=== PATIENT | female | born 1985 | race Caucasian/White ===

== ENCOUNTER 2019-07-25 16:45 | Emergency (ER) | payer OTHER ==
[~2019-07-25] VITALS: Ht 165.1 cm; Wt 81.7 kg
[~2019-07-25 16:45] MED LIST: ACETAMINOPHEN325 M1; ADDERALL 20 MG20 M1 PO; ADDERALL 30 MG30 MG PO; CIPROFLOXACIN500 M1 PO; DIFLUCAN150 MG PO; DOXYCYCLINE 10100 M1 PO; GABAPENTIN 100100 MG PO; HYDROXYCUT; IBUPROFEN 800800 M1 PO; KEFLEX500 MG PO; NORCO 5-325 TA1 EACH PO; OXYCONTIN10 M1 PO; PERCOCET 5-3251 EACH PO; PRENATAL; PYRIDIUM200 MG PO; ROBAXIN 750 MG750 M1 PO; TRAMADOL 50 MG50 MG PO; ULTRAM 50MG TAB50 MG PO; VALIUM5 MG PO; XANAX XR1 MG PO
[2019-07-25 17:32] LABS: URINE BILIRUBIN NEGATIVE (Negative); URINE BLOOD 1+ (Negative); URINE CLARITY CLEAR; URINE COLOR YELLOW; URINE GLUCOSE-RANDOM* NEGATIVE (Negative); URINE KETONES NEGATIVE (Negative); URINE PROTEIN (DIPSTICK) NEGATIVE (Negative); URINE UROBILINOGEN 0.2 E.U./dl (0.2-1.0)
[2019-07-25 17:34] LABS: URINE LEUKOCYTES-REFLEX 1+ (Negative); URINE NITRITE-REFLEX POSITIVE (Negative)
[2019-07-25 17:53] LABS: BACTERIA-REFLEX >30 Many /HPF (None Seen); CASTS None Seen /LPF (None Seen); CRYSTALS None Seen /LPF (None Seen); SQUAMOUS 0-3 Few /LPF (0-3)
[2019-07-25 17:54] LABS: URINE RBC 0-2 Rare /HPF (0-2); URINE WBC-REFLEX 0-5 Rare /HPF (0-5)
[2019-07-25] MEDS ORDERED: TRAMADOL 50 MG50 MG PO (18:02)
[2019-07-25] MEDS ORDERED: CLEOCIN HCL150 MG PO (18:02)
[2019-07-25 18:03] VITALS: BP 120/65
== END 2019-07-25 18:09 | disposition home or self-care (01) ==
LOC: ER 16:45
PROVIDERS: Physician Assistant
DX: L02.31 Cutaneous abscess of buttock (principal); N76.4 Abscess of vulva; F41.9 Anxiety disorder, unspecified; F90.9 Attention-deficit hyperactivity disorder, unspecified type; Z88.6 Allergy status to analgesic agent; Z88.2 Allergy status to sulfonamides; Z87.891 Personal history of nicotine dependence